=== PATIENT | male | born 1990 | race Caucasian/White ===

== ENCOUNTER 2021-12-17 15:24 | Outpatient (CLI) | payer BC | END 2021-12-17 15:25 | disposition home or self-care (01) | LOC: LABBT 15:24 | PROVIDERS: ATTEND Student in an Organized Health Care Education/Training Program | DX: J34.2 Deviated nasal septum (principal); J34.3 Hypertrophy of nasal turbinates; J30.9 Allergic rhinitis, unspecified; J34.89 Other specified disorders of nose and nasal sinuses; R09.81 Nasal congestion; R68.89 Other general symptoms and signs; Z20.822 Contact with and (suspected) exposure to COVID-19 | CPT/HCPCS: U0003; U0005 ==

== ENCOUNTER 2021-12-22 07:03 | Day surgery (SDC) | payer BC ==
[2021-12-17 11:25] VITALS: BMI 25.1
[2021-12-22] MEDS ORDERED: Oxymetazoline HCl 0.05% (30 ML BOT) ONE ×2 (08:01→08:50)
[2021-12-22] MEDS ORDERED: Bacitracin Zinc Ointment 30 gm TUBE ONE (08:50)
[2021-12-22] MEDS ORDERED: Lidocaine 1% w/Epinephrine 1:100K 20 ML VIAL ONE (08:50)
[2021-12-22] MEDS ORDERED: Midazolam HCl 2 mg/2 ml Vial ONE ×2 (08:57→09:01)
[2021-12-22] MEDS ORDERED: fentaNYL Citrate/PF 100 MCG/2 ML SYRINGE ONE (08:57)
[2021-12-22] MEDS ORDERED: HYDROmorphone 2 MG/ML VIAL ONE (08:57)
[2021-12-22] MEDS ORDERED: Succinylcholine 200 MG/10 ml SYRINGE FS ONE (09:24)
[2021-12-22] MEDS ORDERED: Dexamethasone 20 MG/5 ML VIAL ONE (09:24)
[2021-12-22] MEDS ORDERED: Lidocaine 1% PF 5 ML VIAL ONE (09:24)
[2021-12-22] MEDS ORDERED: PROPOFOL 200 MG/20 ML VIAL ONE (09:24)
[2021-12-22] MEDS ORDERED: Ondansetron PF 4 MG/2 ML Vial ONE (09:24)
[2021-12-22] MEDS ORDERED: Ketorolac Tromethamine 30 MG/ML VIAL ONE (09:24)
[2021-12-22] MEDS ORDERED: ePHEDrine 50 MG/ML VIAL ONE (09:24)
[2021-12-22] MEDS ORDERED: HYDROcodone/Acetaminophen 5/325 mg Tablet ONE (12:53)
== END 2021-12-22 13:25 | disposition home or self-care (01) ==
LOC: SDC 07:03
PROVIDERS: ATTEND Student in an Organized Health Care Education/Training Program
PROC: 0NR Head and Facial Bones, Replacement (ICD-10-PCS; principal; 2021-12-22)
PROC: 09TL7ZZ Resection of Nasal Turbinate, Via Natural or Artificial Opening (ICD-10-PCS; principal; 2021-12-22)
PROC: 09SM4ZZ Reposition Nasal Septum, Percutaneous Endoscopic Approach (ICD-10-PCS; principal; 2021-12-22)
DX: J34.89 Other specified disorders of nose and nasal sinuses (principal); J34.2 Deviated nasal septum; J34.3 Hypertrophy of nasal turbinates; J30.9 Allergic rhinitis, unspecified; Z88.8 Allergy status to other drugs, medicaments and biological substances
CPT/HCPCS: C1889; J1100; J1170; J1885; J2250; J2405; J2704; J3490